=== PATIENT | male | born 1995 | race Caucasian/White ===

== ENCOUNTER 2018-02-27 04:04 | Emergency (ER) | payer SELFPAY ==
[2018-02-27 05:21] LABS: Absolute Neutrophil 6.6 K/uL (1.8-8.0); Basophils % 0.6 % (0-1.3); Eosinophils % 1.3 % (0-4.4); Hematocrit 45.8 % (39.6-49.0); Lymphocytes % 20.6 % (15.3-44.8); MCH 29.8 pg (27.0-35.0); MCV 84.4 fL (80-100); MPV 8.9 fL (7.6-11.3); Monocytes % 10.3 % (3.3-12.3); RBC Red Blood Cell Count 5.42 M/uL (4.33-5.43)
[2018-02-27 05:32] LABS: Urine Blood NEGATIVE (NEG); Urine Glucose NEGATIVE (NEG); Urine Protein TRACE (NEG); Urine Specific Gravity >1.030 (1.005-1.030)
[2018-02-27 05:37] LABS: ALT/SGPT 25 U/L (12-78); AST/SGOT 20 U/L (15-37); Albumin 4.3 g/dL (3.4-5.0); Alkaline Phosphatase 114 U/L (45-117); BUN Blood Urea Nitrogen 12 mg/dL (7-18); Bicarbonate 29 mmol/L (21-32); Bilirubin Total 0.4 mg/dL (0.2-1.0); Glucose Level 80 mg/dL (74-106); Potassium 3.6 mmol/L (3.5-5.1); Sodium Level 142 mmol/L (136-145)
--- NOTE | 2018-02-27 05:49 | EDPHYS ---
Physician Documentation [facility] Name: Dennys Dsouza II Age: 22 yrs Sex: Male : 1995 Arrival Date: 02/27/2018 Time: 04:05 Bed 5 Private MD: ED Physician Ghanshyam Mccoy HPI: 02/27 04:18 This 22 yrs old Male presents to ER via Unassigned with complaints of Chest Pain and ps1 syncope. 04:18 reportedly was lying on couch and reportedly passed out on the cough. He said he didn't ps1 fall asleep has been seen and evaluated in multiple ED's for multiple symptoms recently. . patient complains of scapular pain. Non radiating. No nausea. Hx of anxiety. . Historical: - Allergies: 04:29 No Known Allergies; lp1 - Home Meds: 04:29 hydroxyzine HCl 25 mg Oral tab 1 tab 4 times per day [Active]; ketoconazole 200 mg Oral lp1 tab 1 tab once daily [Active]; acetaminophen-codeine 300-30 mg Oral tab 1 tab every 6 hours [Active]; metoprolol tartrate 25 mg Oral tab 1 tab once daily [Active]; - PMHx: 04:29 Asthma; Hypertension; Panic Attacks; Depression; lp1 - PSHx: 04:29 Tonsillectomy; lp1 - Immunization history:: Adult Immunizations up to date. - Social history:: Smoking status: Patient/guardian denies using tobacco. - Ebola Screening: : No symptoms or risks identified at this time. ROS: 05:49 Constitutional: Negative for fever, chills, and weight loss, Eyes: Negative for injury, ps1 pain, redness, and discharge, ENT: Negative for injury, pain, and discharge, Respiratory: Negative for shortness of breath, cough, wheezing, and pleuritic chest pain, Abdomen/GI: Negative for abdominal pain, nausea, vomiting, diarrhea, and constipation, Back: Negative for injury and pain, MS/Extremity: Negative for injury and deformity, Skin: Negative for injury, rash, and discoloration. 05:49 Cardiovascular: Positive for chest pain. 05:49 Neuro: Positive for syncope. Exam: 05:49 Constitutional: This is a well developed, well nourished patient who is awake, alert, ps1 and in no acute distress. Head/Face: Normocephalic, atraumatic. Eyes: Pupils equal round and reactive to light, extra-ocular motions intact. Lids and lashes normal. Conjunctiva and sclera are non-icteric and not injected. Chest/axilla: Normal chest wall appearance and motion. Nontender with no deformity. No lesions are appreciated. Cardiovascular: Regular rate and rhythm. No gallops, murmurs, or rubs. Normal PMI, no JVD. No pulse deficits. Respiratory: Lungs have equal breath sounds bilaterally, clear to auscultation and percussion. No rales, rhonchi or wheezes noted. No increased work of breathing, no retractions or nasal flaring. Abdomen/GI: Soft, non-tender, with normal bowel sounds. No distension or tympany. No guarding or rebound. No evidence of tenderness throughout. MS/ Extremity: Pulses equal, no cyanosis. Neurovascular intact. Full, normal range of motion. Neuro: Awake and alert, GCS 15, oriented to person, place, time, and situation. Cranial nerves II-XII grossly intact. Sensory grossly intact. Vital Signs: 04:00 BP 134 / 95; Pulse 108; Resp 16; Temp 98.6(TE); Pulse Ox 98% on R/A; Weight 50.35 kg; lp1 Height 5 ft. 4 in. (162.56 cm); 04:31 BP 125 / 85; Pulse 91; Resp 16; Pulse Ox 98% on R/A; lp1 05:07 BP 115 / 80 Supine; Pulse 88; lp1 05:10 BP 120 / 85 Sitting; Pulse 85; lp1 05:14 BP 102 / 84 Standing; Pulse 79; lp1 05:41 BP 111 / 95; Pulse 88; Resp 16; Pulse Ox 98% on R/A; mt 04:00 Body Mass Index 19.05 (50.35 kg, 162.56 cm) lp1 MDM: 04:51 Patient medically screened. ps1 05:49 HEART Score: History: Slightly Suspicious (0), ECG: Normal (0), Age: < or = 45 years ps1 (0), Risk Factors: No Risk Factors Known (0), Troponin: < or = 1 x Normal Limit (0). Data reviewed: vital signs, nurses notes, lab test result(s), EKG, radiologic studies, plain films, and as a result, I will discharge patient. Counseling: I had a detailed discussion with the patient and/or guardian regarding: the historical points, exam findings, and any diagnostic results supporting the discharge/admit diagnosis, the need for outpatient follow up, a band shover. Special discussion: Based on the patient's history, exam, and Dx evaluation, there is no indication for emergent intervention or inpatient Tx. It is understood by the patient/guardian that if the Sx's persist or worsen they need to return immediately for re-evaluation. 02/27 04:40 Order name: CBC with Diff; Complete Time: 05:28 ps1 02/27 04:40 Order name: Troponin (emerg Dept Use Only); Complete Time: 05:38 ps1 02/27 04:40 Order name: CMP; Complete Time: 05:38 ps1 02/27 05:06 Order name: Urine Dipstick--Ancillary (enter results) ms 02/27 04:40 Order name: EKG; Complete Time: 04:40 ps1 02/27 04:40 Order name: Cardiac monitoring; Complete Time: 05:13 ps1 02/27 04:40 Order name: EKG - Nurse/Tech; Complete Time: 05:12 ps1 02/27 04:40 Order name: IV Saline Lock; Complete Time: 05:05 ps1 02/27 04:40 Order name: Labs collected and sent; Complete Time: 05:05 ps1 02/27 04:40 Order name: NPO; Complete Time: 05:05 ps1 02/27 04:40 Order name: O2 Per Protocol; Complete Time: 05:05 ps1 02/27 04:40 Order name: O2 Sat Monitoring; Complete Time: 05:05 ps1 02/27 04:40 Order name: Urine Dipstick-Ancillary (obtain specimen); Complete Time: 05:05 ps1 02/27 04:40 Order name: Orthostatic Blood Pressure; Complete Time: 05:12 ps1 Administered Medications: 05:56 Drug: Motrin 600 mg Route: PO; lp1 05:56 Follow up: Response: Medication administered at discharge. lp1 Disposition: 02/27/18 05:48 Discharged to Home. Impression: Other chest pain, Syncope and collapse. - Condition is Stable. - Discharge Instructions: Nonspecific Chest Pain, Syncope. - Prescriptions for Anaprox DS 550 mg Oral Tablet - take 1 tablet by ORAL route every 12 hours As needed; 20 tablet. - Medication Reconciliation Form, Thank You Letter, Antibiotic Education, Prescription Opioid Use form. - Follow up: Private Physician; When: As needed; Reason: Recheck today's complaints, Continuance of care, Re-evaluation by your physician. Follow up: Emergency Department; When: As needed; Reason: Worsening of condition. - Problem is new. - Symptoms are unchanged. Signatures: Dispatcher [employer] [facility] Gely Potts RN RN lp1 Barbara Apple RN RN ak1 Ghanshyam Mcocy MD MD ps1 Corrections: (The following items were deleted from the chart) 04:41 04:40 BASIC METABOLIC PANEL+C.LAB.BRZ ordered. [facility] EDCA 05:58 05:48 02/27/2018 05:48 Discharged to Home. Impression: Other chest pain; Syncope and lp1 collapse. Condition is Stable. Forms are Medication Reconciliation Form, Thank You Letter, Antibiotic Education, Prescription Opioid Use. Follow up: Private Physician; When: As needed; Reason: Recheck today's complaints, Continuance of care, Re-evaluation by your physician. Follow up: Emergency Department; When: As needed; Reason: Worsening of condition. Problem is new. Symptoms are unchanged. ps1
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
[2018-02-27] MEDS ORDERED: IBUPROFEN 200 MG TAB PO ONE (05:57)
[2018-02-27] MEDS ORDERED: IBUPROFEN 400 MG TAB ONE (05:57)
--- NOTE | 2018-02-27 06:30 | EKG ---
Test Date: 2018-02-27 Test Time: 05:08:37 Powder Coat Painter: KATERIN MEASUREMENT RESULTS: Intervals: Rate: 80 MO: 174 QRSD: 82 QT: 352 QTc: 405 [place]: P: 63 MO: 174 QRS: 54 T: 42 INTERPRETIVE STATEMENTS: Normal sinus rhythm with sinus arrhythmia Normal ECG No previous ECG available for comparison Electronically Signed On 02-27-18 06:30:13 CDT by Chong Stahl
== END 2018-02-27 05:58 | disposition home or self-care (01) ==
LOC: ER 04:04
DX: R07.89 Other chest pain (principal); R55 Syncope and collapse; J45.909 Unspecified asthma, uncomplicated; I10 Essential (primary) hypertension
CPT/HCPCS: 36415; 80053; 81003; 84484; 85025; 93005; 99284

== ENCOUNTER 2018-08-25 20:58 | Emergency (ER) | payer OTHER ==
--- OUTSIDE RECORDS SUMMARY | 2018-08-25 20:59 | XMS REPORT | Clinical Summary ---
:1995 Author Organization [facility] Address [address] [place] [address] Care Team Providers Name Role Phone Asked, No Pcp Primary Care Provider Unavailable Allergies No Known Allergies Medications Medication Sig Dispensed Refills Start Date End Date Status naproxen (NAPROSYN) Take 1 tablet 60 tablet 0 09/04/2017 10/04/2017 500 MG tablet (500 mg total) by mouth 2 (two) times a day with meals for 30 days. Active Problems Not on file Encounters Date Type Specialty Care Team Description 09/03/2017 - Emergency Emergency Medicine Heide Biggs, Acute pain of right 09/04/2017 shoulder (Primary Dx) after 08/24/2017 Social History Tobacco Use Types Packs/Day Years Used Date Light Tobacco Smoker Cigarettes 0.5 Smokeless Tobacco: Never Used Alcohol Use Drinks/Week oz/Week Comments Yes "ocassional" Sex Assigned at Date Recorded Not on file Job Start Date Occupation Industry Not on file Not on file Not on file Travel History Travel Start Travel End No recent travel history available. Last Filed Vital Signs Vital Sign Reading Time Taken Blood Pressure 122/77 09/03/2017 11:35 PM [employer] Pulse 123 09/03/2017 11:35 PM [employer] Temperature 36.9 C (98.5 F) 09/03/2017 11:35 PM [employer]IST Respiratory Rate 16 09/03/2017 11:35 PM [employer] TECHNOLOGIST Oxygen Saturation 100% 09/03/2017 11:35 PM [employer] TECHN[employer]IST Inhaled Oxygen Concentration - - Weight 49.4 kg (109 lb) 09/03/2017 11:31 PM [employer] TECHNOLOGIST Height 162.6 cm (5' 4") 09/03/2017 11:31 PM [employer]CH[employer]IST Body Mass Index 18.71 09/03/2017 11:31 PM [employer] TECHNOLOGIST Plan of Treatment Health Maintenance Due Date Last Done Comments INFLUENZA VACCINE 03/20/2018 Results Not on fileafter 08/24/2017 Advance Directives Patient has advance care planning documents on file. For more information, please contact:Jude Burgos[address] [place] [address]
--- OUTSIDE RECORDS SUMMARY | 2018-08-25 20:59 | XMS REPORT ---
:1995 [facility] Address [address] [place] [address] Dr. Luong [address] [place] [id number] Care Team Providers Name Role Phone Unavailable Unavailable Unavailable Problems This patient has no known problems. Allergies, Adverse Reactions, Alerts This patient has no known allergies or adverse reactions. Medications This patient has no known medications. Encounters Start End Encounter Admission Attending Care Care Encounter Date/Time Date/Time Type Type Clinicians Facility Department ID 2017-01-18 2017-01-18 Emergency [facility] [id number] 21:37:52 21:37:52
[2018-08-25] MEDS ORDERED: LORAZEPAM 1 MG TABLET ONE (22:56)
[2018-08-25 23:07] LABS: Absolute Lymphocytes (CBC) 2.1 K/uL (0.7-4.9); Absolute Monocytes 0.8 K/uL (0.1-1.3); Absolute Neutrophil 3.8 K/uL (1.8-8.0); Basophils % 0.7 % (0-1.3); Eosinophils % 2.1 % (0-4.4); Hematocrit 43.4 % (39.6-49.0); Lymphocytes % 30.5 % (15.3-44.8); MPV 8.6 fL (7.6-11.3); RBC Red Blood Cell Count 4.95 M/uL (4.33-5.43)
[2018-08-25 23:09] LABS: Urine Appearance CLEAR; Urine Bilirubin NEGATIVE (NEG); Urine Blood NEGATIVE (NEG); Urine Color YELLOW; Urine Glucose NEGATIVE (NEG); Urine Protein NEGATIVE (NEG); Urine Specific Gravity >=1.030 (1.005-1.030); Urine Urobilinogen 0.2 mg/dL (0.2-1.0); Urine pH 6.5 (5.0-7.0)
[2018-08-25 23:18] LABS: ALT/SGPT 32 U/L (12-78); AST/SGOT 25 U/L (15-37); Albumin 4.6 g/dL (3.4-5.0); Alkaline Phosphatase 106 U/L (45-117); BUN Blood Urea Nitrogen 18 mg/dL (7-18); Bicarbonate 27 mmol/L (21-32); Bilirubin Direct 0.1 mg/dL (0-0.2); Bilirubin Total 0.5 mg/dL (0.2-1.0); Glucose Level 94 mg/dL (74-106); Lipase 212 U/L (73-393); Potassium 3.7 mmol/L (3.5-5.1); Protein, Total 7.9 g/dL (6.4-8.2); Sodium Level 144 mmol/L (136-145)
[2018-08-25 23:53] LABS: Urine Microscopic Reflex NO UMIC
[2018-08-25 23:57] LABS: Barbiturates NEGATIVE (NEGATIVE); Benzodiazepines NEGATIVE (NEGATIVE); Cocaine NEGATIVE (NEGATIVE); METHAMPHETAM NEGATIVE (NEGATIVE); Methadone NEGATIVE (NEGATIVE); Opiates NEGATIVE (NEGATIVE); Phencyclidine NEGATIVE (NEGATIVE); THC Cannibis NEGATIVE (NEGATIVE)
--- NOTE | 2018-08-26 00:01 | ER ---
Nurse's Notes [facility] Name: Dennys Dsouza II Age: 23 yrs Sex: Male : 1995 Arrival Date: 08/25/2018 Time: 20:59 Bed 23 Private MD: Diagnosis: Anxiety disorder Presentation: 08/25 21:08 Presenting complaint: Patient states: Since 5 days ago, "my anxiety has been really lp1 bad, I have been having chest pain, chills, burning sensation up my neck, I can't sleep, pain to shoulder"; States cannot take the pain anymore. Transition of care: patient was not received from another setting of care. Onset of symptoms was August 25, 2018. Risk Assessment: Do you want to hurt yourself or someone else? Patient reports no desire to harm self or others. Initial Sepsis Screen: Does the patient meet any 2 criteria? No. Patient's initial sepsis screen is negative. Does the patient have a suspected source of infection? No. Patient's initial sepsis screen is negative. Care prior to arrival: None. 21:08 Method Of Arrival: Ambulatory lp1 21:08 Acuity: JJ 3 lp1 Historical: - Allergies: 21:11 No Known Allergies; lp1 - Home Meds: 21:11 hydroxyzine HCl 25 mg Oral tab 1 tab [Active]; ketoconazole 200 mg Oral tab 1 tab once lp1 daily [Active]; metoprolol tartrate 25 mg Oral tab 1 tab once daily [Active]; - PMHx: 21:11 Asthma; Depression; Hypertension; Panic Attacks; lp1 - PSHx: 21:11 Tonsillectomy; Adenoids; lp1 - Immunization history:: Adult Immunizations up to date. - Social history:: Smoking status: Patient/guardian denies using tobacco. - Ebola Screening: : No symptoms or risks identified at this time. Screenin:11 Abuse screen: Denies threats or abuse. Denies injuries from another. Nutritional lp1 screening: No deficits noted. Tuberculosis screening: No symptoms or risk factors identified. Fall Risk None identified. Assessment: 22:09 Reassessment: Patient appears in no apparent distress at this time. No changes from ed1 previously documented assessment. Patient and/or family updated on plan of care and expected duration. Pain level reassessed. Patient is alert, oriented x 3, equal unlabored respirations, skin warm/dry/pink. Patient states symptoms have not improved. Pain: Complains of pain in abdomen and left arm Pain currently is 8 out of 10 on a pain scale. Quality of pain is described as aching. GI: Abdomen is non-distended, Bowel sounds present X 4 quads. Abd is soft and non tender X 4 quads. Reports lower abdominal pain, upper abdominal pain, nausea. 08/26 00:06 Reassessment: Patient appears in no apparent distress at this time. Patient and/or ed1 family updated on plan of care and expected duration. Pain level reassessed. Patient is alert, oriented x 3, equal unlabored respirations, skin warm/dry/pink. Patient states feeling better. Patient states symptoms have improved. Vital Signs: 08/25 21:10 BP 145 / 90; Pulse 95; Resp 16; Temp 97.5(O); Pulse Ox 100% on R/A; Weight 52.62 kg; lp1 Height 5 ft. 0 in. (152.40 cm); Pain 8/10; 08/26 00:06 BP 136 / 71; Pulse 83; Resp 16; Temp 97.5(O); Pulse Ox 100% on R/A; Pain 4/10; ed1 01 21:10 Body Mass Index 22.65 (52.62 kg, 152.40 cm) lp1 ED Course: 08/25 20:59 Patient arrived in ED. mr 21:10 Triage completed. lp1 21:10 Arm band placed on left wrist. lp1 21:13 Svitlana Varela LVN is Primary Nurse. ed1 22:09 Awaiting ED provider evaluation. ed1 22:09 Patient has correct armband on for positive identification. Bed in low position. Call ed1 light in reach. 22:32 Sharif Clayton MD is Attending Physician. pkl 23:01 Initial lab(s) drawn, by ED staff, sent to lab. Urine collected: clean catch specimen, ed1 clear, EKG done, by ED staff, reviewed by Sharif Clayton MD. Inserted saline lock: 20 gauge in right antecubital area, using aseptic technique. Blood collected. 23:03 X-ray completed. Portable x-ray completed in exam room. Patient tolerated procedure kw well. 23:05 XRAY CXR (1 view) In Process Unspecified. EDMS 23:[address] via wheelchair. kw1 23:31 CT Head Brain wo Cont In Process Unspecified. EDMS 23:33 CT completed. Patient tolerated procedure well. Patient moved back from CT. kw1 08/26 00:06 No provider procedures requiring assistance completed. IV discontinued, intact, ed1 bleeding controlled, No redness/swelling at site. Pressure dressing applied. Administered Medications: 08/25 22:48 Drug: Ativan 1 mg Route: PO; ed1 08/26 00:08 Follow up: Response: No adverse reaction; Anxiety decreased ed1 Outcome: 00:00 Discharge ordered by . katy 00:06 Discharged to home ambulatory. ed1 00:06 Condition: good 00:06 Discharge instructions given to patient, Instructed on discharge instructions, follow up and referral plans. medication usage, Demonstrated understanding of instructions, follow-up care, medications, Prescriptions given X 1. 00:08 Patient left the ED. ed1 Signatures: Dispatcher [employer] EDMS Sharif Clayton MD MD pkl Rivera, Mary mr Riggs, Erika, RAILROAD COOK RAILROAD COOK ed1 Teresita Mcdonald Laura, RN RN lp1 Sho Ro kw
--- NOTE | 2018-08-26 00:01 | EDPHYS ---
Physician Documentation [facility] Name: Dennys Dsouza II Age: 23 yrs Sex: Male : 1995 Arrival Date: 08/25/2018 Time: 20:59 Bed 23 Private MD: ED Physician Sharif Clayton HPI: 08/25 22:33 This 23 yrs old Male presents to ER via Ambulatory with complaints of Leg pkl Pain, Abdominal Pain, Anxiety. 22:42 The patient presents to the emergency department with anxiety, over unknown pkl circumstances. Onset: The symptoms/episode began/occurred 5 day(s) ago. Associated signs and symptoms: Pertinent positives; chest pain, headache, unable to sleep. Historical: - Allergies: 21:11 No Known Allergies; lp1 - Home Meds: 21:11 hydroxyzine HCl 25 mg Oral tab 1 tab [Active]; ketoconazole 200 mg Oral tab 1 tab once lp1 daily [Active]; metoprolol tartrate 25 mg Oral tab 1 tab once daily [Active]; - PMHx: 21:11 Asthma; Depression; Hypertension; Panic Attacks; lp1 - PSHx: 21:11 Tonsillectomy; Adenoids; lp1 - Immunization history:: Adult Immunizations up to date. - Social history:: Smoking status: Patient/guardian denies using tobacco. - Ebola Screening: : No symptoms or risks identified at this time. ROS: 22:42 ENT: Negative for injury, pain, and discharge. pkl 22:42 Eyes: Positive for redness, discomfort left eye. 22:42 Neck: Positive for burning sensation in neck. 22:42 Cardiovascular: Positive for chest pain. 22:42 Respiratory: Negative for cough, shortness of breath. 22:42 Abdomen/GI: Negative for abdominal pain, nausea, vomiting, and diarrhea. 22:42 Back: Negative for acute changes. 22:42 : Negative for urinary symptoms. 22:42 MS/extremity: Negative for acute changes. 22:42 Skin: Negative for rash. 22:42 Neuro: Positive for headache. 22:42 Psych: Positive for anxiety, Negative for homicidal ideation. Exam: 22:42 Head/Face: Normocephalic, atraumatic. Eyes: Pupils equal round and reactive to light, pkl extra-ocular motions intact. Lids and lashes normal. Conjunctiva and sclera are non-icteric and not injected. Cornea within normal limits. Periorbital areas with no swelling, redness, or edema. ENT: Nares patent. No nasal discharge, no septal abnormalities noted. Tympanic membranes are normal and external auditory canals are clear. Oropharynx with no redness, swelling, or masses, exudates, or evidence of obstruction, uvula midline. Mucous membranes moist. Neck: Trachea midline, no thyromegaly or masses palpated, and no cervical lymphadenopathy. Supple, full range of motion without nuchal rigidity, or vertebral point tenderness. No Meningismus. Chest/axilla: Normal chest wall appearance and motion. Nontender with no deformity. No lesions are appreciated. Cardiovascular: Regular rate and rhythm with a normal S1 and S2. No gallops, murmurs, or rubs. Normal PMI, no JVD. No pulse deficits. Respiratory: Lungs have equal breath sounds bilaterally, clear to auscultation and percussion. No rales, rhonchi or wheezes noted. No increased work of breathing, no retractions or nasal flaring. Abdomen/GI: Soft, non-tender, with normal bowel sounds. No distension or tympany. No guarding or rebound. No evidence of tenderness throughout. Back: No spinal tenderness. No costovertebral tenderness. Full range of motion. Skin: Warm, dry with normal turgor. Normal color with no rashes, no lesions, and no evidence of cellulitis. MS/ Extremity: Pulses equal, no cyanosis. Neurovascular intact. Full, normal range of motion. Neuro: Awake and alert, GCS 15, oriented to person, place, time, and situation. Cranial nerves II-XII grossly intact. Motor strength 5/5 in all extremities. Sensory grossly intact. Cerebellar exam normal. Normal gait. 22:42 Psych: Behavior/mood is anxious, Patient has no thoughts/intents to harm self or others. Vital Signs: 21:10 BP 145 / 90; Pulse 95; Resp 16; Temp 97.5(O); Pulse Ox 100% on R/A; Weight 52.62 kg; lp1 Height 5 ft. 0 in. (152.40 cm); Pain 8/10; 08/26 00:06 BP 136 / 71; Pulse 83; Resp 16; Temp 97.5(O); Pulse Ox 100% on R/A; Pain 4/10; ed1 08/25 21:10 Body Mass Index 22.65 (52.62 kg, 152.40 cm) lp1 MDM: 08/25 22:33 Patient medically screened. pkl 23:58 Data reviewed: vital signs, nurses notes, lab test result(s), radiologic studies, CT pkl scan. 08/25 22:40 Order name: CBC with Diff; Complete Time: 23:55 pkl 08/25 22:40 Order name: Chem 7; Complete Time: 23:55 pkl 08/25 22:40 Order name: UA; Complete Time: 23:55 pkl 08/25 22:40 Order name: UDS; Complete Time: 23:57 pkl 08/25 22:41 Order name: Lipase; Complete Time: 23:55 pkl 08/25 22:41 Order name: LFT's; Complete Time: 23:55 pkl 08/25 22:40 Order name: XRAY CXR (1 view) pkl 08/25 22:40 Order name: EKG; Complete Time: 22:41 pkl 08/25 22:40 Order name: CT Head Brain wo Cont pkl Administered Medications: 22:48 Drug: Ativan 1 mg Route: PO; ed1 08/26 00:08 Follow up: Response: No adverse reaction; Anxiety decreased ed1 Disposition: 08/26/18 00:00 Discharged to Home. Impression: Anxiety disorder. - Condition is Stable. - Prescriptions for Ativan 0.5 mg Oral Tablet - take 1 tablet by ORAL route 2 times per day As needed; 10 tablet. - Medication Reconciliation Form, Thank You Letter, Antibiotic Education, Prescription Opioid Use form. - Follow up: Private Physician; When: 2 - 3 days; Reason: Re-evaluation by your physician. - Problem is new. - Symptoms have improved. Signatures: Dispatcher [employer] EDMS Sharif Clayton MD MD pkSvitlana Lara LVN [employer] ed1 Gely Potts, RN RN lp1 Corrections: (The following items were deleted from the chart) 00:08 00:00 08/26/2018 00:00 Discharged to Home. Impression: Anxiety disorder. Condition is ed1 Stable. Forms are Medication Reconciliation Form, Thank You Letter, Antibiotic Education, Prescription Opioid Use. Follow up: Private Physician; When: 2 - 3 days; Reason: Re-evaluation by your physician. Problem is new. Symptoms have improved. pkl
--- NOTE | 2018-08-26 06:25 | EKG ---
Test Date: 2018-08-25 Test Time: 22:56:45 Production Generalist: JOVON MEASUREMENT RESULTS: Intervals: Rate: 84 OH: 174 QRSD: 88 QT: 360 QTc: 425 [place]: P: 69 OH: 174 QRS: 50 T: 54 INTERPRETIVE STATEMENTS: Normal sinus rhythm with sinus arrhythmia Normal ECG Compared to ECG 02/27/2018 05:08:37 No significant changes Electronically Signed On 08-26-18 06:16:57 PHOTO COLORER by Chong Stahl
--- NOTE | 2018-08-26 08:36 | RAD REPORT ---
EXAM DESCRIPTION: Debora Single View08/25/2018 11:07 pm CLINICAL HISTORY: Chest pain COMPARISON: none FINDINGS: The lungs appear clear of acute infiltrate. The heart is normal size IMPRESSION: No acute abnormalities displayed
--- NOTE | 2018-08-26 09:05 | RAD REPORT ---
EXAM DESCRIPTION: CT - Head Brain Wo Cont - 08/26/2018 2:23 am CLINICAL HISTORY: Headache COMPARISON: None. TECHNIQUE: Computed axial tomography of the head was obtained. IV contrast was not requested. Prelim inary report generated by [employer] and reviewed prior to dictation All CT scans are performed using dose optimization technique as appropriate and may include automated exposure control or mA/KV adjustment according to patient size. FINDINGS: An intracranial bleed is not seen . The ventricles are normal in caliber. No extra-axial fluid collection is noted. Jasiel cisterna magna is present Fluid within the sinuses/ mastoids is not seen. IMPRESSION: No acute intracranial abnormality is seen. If patient's symptoms persist MRI of the bra in would be recommended.
== END 2018-08-26 00:08 | disposition home or self-care (01) ==
LOC: ER 20:58
DX: F41.9 Anxiety disorder, unspecified (principal); I10 Essential (primary) hypertension; F32.9 Major depressive disorder, single episode, unspecified; J45.909 Unspecified asthma, uncomplicated; Z79.899 Other long term (current) drug therapy
CPT/HCPCS: 36415; 70450; 71045; 80048; 80076; 80307; 81003; 83690; 85025; 93005; 99284